=== PATIENT | male | born 1965 | race Caucasian/White ===

== ENCOUNTER 2024-04-27 18:14 | Emergency (ER) | payer MEDICAID ==
[~2024-04-27] VITALS: Ht 175.3 cm; Wt 81.8 kg
[2024-04-27 19:14] VITALS: BP 140/90; PULSE 92; RESP 16; TEMP 98.3; O2SAT 100
[2024-04-27] MEDS: PERTUSS(ACELL),DIPH,TET/PF 0.5 ML SYRINGE [ADULT] IM. ONE (21:18)
[2024-04-27] MEDS: LIDOCAINE 1% 10 ML VIAL SQ ONE (21:19)
[2024-04-27] MEDS: BACITRACIN 0.9 GM PACKET OINTMENT TP ONE (21:19)
[2024-04-27] MEDS: LIDOCAINE 2% 6 ML JELLY TP ONE (21:19)
[2024-04-27] MEDS ORDERED: BACI28.410 TP (22:15)
== END 2024-04-27 22:52 | disposition admitted as inpatient to this hospital (09) ==
LOC: EMS 18:26
DX: S01.81XA Laceration without foreign body of other part of head, initial encounter (principal); F10.20 Alcohol dependence, uncomplicated; W01.0XXA Fall on same level from slipping, tripping and stumbling without subsequent striking against object, initial encounter; Y93.89 Activity, other specified; Y92.89 Other specified places as the place of occurrence of the external cause; Y99.8 Other external cause status
CPT/HCPCS: 99285; 70450; 90715; 90471; 12013; J3490